=== PATIENT | male | born 1960 | race Caucasian/White ===

== ENCOUNTER 2020-03-03 09:09 | Outpatient (CLI) | payer OTHER | END 2020-03-03 09:10 | disposition home or self-care (01) | LOC: COV 09:09 | PROVIDERS: ATTEND Family Medicine | DX: Z20.828 Contact with and (suspected) exposure to other viral communicable diseases (principal) ==

== ENCOUNTER 2021-08-12 16:45 | Outpatient (CLI) | payer OTHER ==
--- NOTE | 2021-08-12 18:03 | Ultrasound Report ---
PROCEDURE: Duplex Ext Veins Left INDICATIONS: EDEMA, LEFT LEG SWELLING TECHNIQUE: Real-time imaging, as well as color and pulse Doppler interrogation, were performed of the lower extr emity deep veins from the inguinal ligament to the popliteal fossa. COMPARISON: None. FINDINGS: The deep veins are normally compressible, and free of intraluminal thrombus. Color and pu lse Doppler demonstrate normal phasic intraluminal flow. There is normal augmentation response to di stal compression maneuver. Possible small left popliteal/Yu's cyst. It measures approximately 1.6 x 0.6 x 0.9 cm IMPRESSION: Negative for deep venous thrombosis of the left lower extremity. Possible small left popliteal/Yu's cyst. Reviewed by: Gerard Byrnes MD on 08/12/2021 6:02 PM PST Approved by: Gerard Byrnes MD on 08/12/2021 6:02 PM PST Station ID: [id number]
== END 2021-08-12 16:46 | disposition home or self-care (01) ==
LOC: DI 16:45
PROVIDERS: ATTEND Naturopath
DX: R22.42 Localized swelling, mass and lump, left lower limb (principal)

== ENCOUNTER 2024-01-15 13:54 | Outpatient (CLI) | payer OTHER ==
--- NOTE | 2024-01-15 19:28 | XRAY Report ---
PROCEDURE: Foot 3+V LT (Weight Bearing) INDICATIONS: LEFT FOOT PAIN TECHNIQUE: 3 views of the foot were acquired. COMPARISON: None. FINDINGS: Bones: No fractures or dislocations. No suspicious bony lesions. Hallux valgus, bunion. Mild tibiot alar joint degenerative arthritis. Soft tissues: No tibiotalar joint effusion. Achilles tendon appears normal. IMPRESSION: 1. No acute bony abnormality. 2. Hallux valgus, bunion. 3. Mild tibiotalar joint degenerative arthritis Reviewed by: Deondre Zaldivar MD on 01/15/2024 7:27 PM PDT Approved by: Deondre Zaldivar MD on 01/15/2024 7:27 PM PDT Station ID: [id number]
== END 2024-01-15 13:55 | disposition home or self-care (01) ==
LOC: DI 13:54
PROVIDERS: ATTEND Podiatrist
DX: M19.072 Primary osteoarthritis, left ankle and foot (principal); M20.12 Hallux valgus (acquired), left foot; M21.612 Bunion of left foot